=== PATIENT | male | born 1990 | race Caucasian/White ===

== ENCOUNTER 2022-08-16 17:34 | Emergency (ER) | payer BC, SELFPAY ==
[2022-08-16 17:46] VITALS: BP 154/105; PULSE 98; RESP 16; TEMP 36.7; O2SAT 99
--- NOTE | 2022-08-16 18:00 | PC.NURSE ---
PT UNABLE TO PROVIDE URINE SPECIMEN, WATER PROVIDED.
--- NOTE | 2022-08-16 18:29 | ED.FEMALEGU ---
HPI - Female Genitourinary General Chief complaint: Urogenital-Male Stated complaint: GROIN PAIN/BURNING URINATION/TIRED Related Data Home Medications Medication Instructions Recorded Confirmed multivitamin 1 tablet PO DAILY 07/24/19 08/16/22 Allergies Allergy/AdvReac Type Severity Reaction Status Date / Time Penicillins Allergy Unknown Skin Verified 08/16/22 17:54 Reaction PMFSH Past Medical History Medical History (Updated 08/16/22 @ 18:41 by Renate Pacheco NP) Kidney infection (~2014) [place] exposure (~2014) Family History Family History Sibling Depression Family history of attention deficit hyperactivity disorder (ADHD) Social History Social History Alcohol intake: current Course Vital Signs Vital signs: Vital Signs Oxygen Delivery Room Air 08/16/22 17:40 Temperature 36.7 C 08/16/22 17:46 Pulse Rate 98 08/16/22 17:46 Respiratory Rate 16 08/16/22 17:46 Blood Pressure 154/105 H 08/16/22 17:46 Pulse Oximetry 99 08/16/22 17:46 Oxygen Delivery Room Air 08/16/22 17:40 MDM - Female Genitourinary Lab Data Labs: Urine Glucose Negative Reference Range: Negative Urine Bilirubin Negative Reference Range: Negative Urine Ketone Negative Reference Range: Negative Urine Specific Robbins 1.030 Reference Range:1.001-1.035 Urine Blood Trace Reference Range: Negative * * Urine pH 5.5 Reference Range: 5.0-9.0 Urine Protein 2+ Reference Range: Negative Urine Urobilinogen 0.2 Reference Range: 0.2-1.0 Urine Nitrate Negative Reference Range: Negative Urine Leukocyte Negative Reference Range: Negative Urine Color Yellow Reference Range: Yellow Urine Characteristics Clear Urine Characteristics Cloudy Discharge Plan Discharge Clinical Impression: Epididymitis Patient Disposition: Home, Self-Care Condition: Stable Instructions: Antibiotic Form, Epididymitis (ED) Additional Instructions: Increase fluids especially cranberry juice and water Avoid caffeine and carbonated beverages Antibiotic as directed Flomax as prescribed daily Tylenol/ibuprofen for pain or fever Follow-up with her primary care provider if further problems or concerns Dr Collins urology on [phone] Recheck if you have fever over 101, nausea and vomiting. if pain increases to groin, any fevers, any testicle pain,blood in urine or changes in your condition go directly to the emergency room. If your symptoms persist, change or worsen significantly before you can contact your personal physician then please, without delay, go to the emergency department for further evaluation. Follow-up with PCP in 7-10 days or sooner if needed Follow up with PCP soon in regards to your blood pressure which is elevated above threshold for referral. Blood pressure above 120/80 may indicate pre-hypertension. 154/105 Prescriptions: New ciprofloxacin HCl 500 mg tablet 500 mg PO
--- NOTE | 2022-08-16 19:38 | ED.MALEGU ---
HPI - Male Genitourinary General Chief complaint: Urogenital-Male Stated complaint: GROIN PAIN/BURNING URINATION/TIRED Time Seen by Provider: 08/16/22 17:45 Source: patient, RN notes reviewed and old records reviewed Mode of arrival: ambulatory Limitations: no limitations History of Present Illness HPI Narrative: 31 year old male who presents to [facility] care with complaints of bilateral groin pain worse on left with some left back discomfort onset since last evening,with burning with urination some fatigue nausea and cloudy urine. Patient reports no fevers diarrhea or any hematuria or testicle pain. Patient reports that he does not have any diarrhea, hematuria, no penile discharge or any concerns for STD's. Patient reports that he has no history of kidney stones has had UTI's in past and also epididymitis. patient reports that he some constant pain which is worse with urination, has not taken any OTC medications for his discomfort. MD Complaint: dysuria and other (groin pain and left back pain) Onset (ago): day(s) (since yesterday evening) Severity scale (1-10): 5 Associated symptoms: Reports dysuria Related Data Home Medications Medication Instructions Recorded Confirmed multivitamin 1 tablet PO DAILY 07/24/19 08/16/22 Allergies Allergy/AdvReac Type Severity Reaction Status Date / Time Penicillins Allergy Unknown Skin Verified 08/16/22 17:54 Reaction Review of Systems Review of Systems: CONSTITUTIONAL: Denies fever, chills, or sweats. EYES: Denies visual changes, redness, or discharge. ENT: Denies rhinorrhea, congestion, sore throat, or otalgia. CARDIOVASCULAR: Denies chest pain, palpitations, or edema. RESPIRATORY: Denies cough or dyspnea. GASTROINTESTINAL: Reports left groin tenderness, and nausea no vomiting or diarrhea, no CVA tenderness, denies any penile drainage, admits to burning with urination. GENITOURINARY: positive dysuria no hematuria. SKIN: Denies rash or itching. MUSCULOSKELETAL: Reports lower left back pain, no joint pain, or myalgia. NEUROLOGIC: Denies headache, numbness, or weakness. PSYCHIATRIC: Denies anxiety or depression All systems reviewed & are unremarkable except as noted in HPI and below PMFSH Past Medical History Medical History (Updated 08/16/22 @ 18:41 by Renate Pacheco NP) Kidney infection (~2014) [place] exposure (~2014) Family History Family History Sibling Depression Family history of attention deficit hyperactivity disorder (ADHD) Social History Social History Alcohol intake: current Comments At time of signature, agree with nursing past medical, surgical, social and family history. There is no relevant family history pertinent to the presenting complaint Exam Narrative: GENERAL: Well-appearing, well-nourished, and in no acute distress. HEAD: Normocephalic, atraumatic. EYES: PERRLA and EOMI. ENT: Nares clear, no rhinorrhea or epistaxis. Mucous membranes moist. NECK: Supple. no lymphadenopathy CHEST: Clear to auscultation. No respiratory distress. HEART: Regular rate and rhythm. No murmur heard. Normal peripheral pulses. ABDOMEN: Soft, tenderness to left lower abdomen on palpation, no CVA tenderness, nondistended, normal active bowel sounds. No testicular swelling on examination or pain, reports some groin pressure. EXTREMITIES: Normal range of motion. No edema. SKIN: Warm, dry, no rash. NEURO: No focal deficits. Alert and oriented x3.anxious Course Course Emergency Course: Patient is aware of diagnosis, understands and agrees to treatment plan.? Anticipatory guidance given.? Patient agrees to follow-up as directed and is aware of reasons to seek care at the emergency department. Portions of this record may have been created with voice recognition software Level of Care: Express Care Visit Vital Signs Vital signs: Vital Signs Oxygen Delivery
== END 2022-08-16 18:50 | disposition home or self-care (01) ==
PROVIDERS: Emergency Provider Registered Nurse
DX: N45.1 Epididymitis (principal)
CPT/HCPCS: 81003; 99213; G0463

== ENCOUNTER 2023-12-11 09:21 | Outpatient (CLI) | payer BC, SELFPAY ==
--- NOTE | 2023-12-11 09:22 | EST_ITS ---
Patient Info Name: Je Silva Age: 33 years : 1990 Gender: Male Ht: 71 in Wt: 205 lbs BSA: 2.18 m2 Exam Date: 12/11/2023 10:02 AM Exam Location: [facility] Lab Patient Status: Outpatient Admit Date: 12/11/2023 Staff Ordering Physician: Doug Haynes DO Attending Provider: Doug Haynes DO Exercise Technologist: Leeann Mercedes RDCS Exercise Physician: Doug Haynes DO Exam Type: CA stress test treadmill Study Info Indications R07.9 - Chest pain, unspecified A treadmill exercise stress test was performed. Summary 1. 1. Negative Lamin exercise stress test for ischemic ST changes by ECG criteria. 2. 2. Good functional capacity, achieving 10 METs of workload. 3. 3. Appropriate HR response to exercise. 4. 4. Appropriate HR recovery at 1 minute post exercise. 5. 5. No imaging with stress testing. 6. 6. Patient informed of the above results. Protocol: [place]amin Stress ECG Details Stage: REST Duration (min): 1 min : 18 sec Speed (mph): 0.0 Grade (%): 0 HR (bpm): 67 SBP (mmHg): 143 DBP (mmHg): 79 METS: --- Stage: REST Duration (min): 5 min : 15 sec Speed (mph): 0.0 Grade (%): 0 HR (bpm): 98 SBP (mmHg): 143 DBP (mmHg): 79 METS: --- Stage: STAGE 1 Duration (min): 1 min : 0 sec Speed (mph): 1.7 Grade (%): 10 HR (bpm): 112 SBP (mmHg): 143 DBP (mmHg): 79 METS: --- Stage: STAGE 1 Duration (min): 2 min : 0 sec Speed (mph): 1.7 Grade (%): 10 HR (bpm): 120 SBP (mmHg): 143 DBP (mmHg): 79 METS: --- Stage: STAGE 1 Duration (min): 3 min : 0 sec Speed (mph): 1.7 Grade (%): 10 HR (bpm): 120 SBP (mmHg): 187 DBP (mmHg): 78 METS: --- Stage: STAGE 2 Duration (min): 1 min : 0 sec Speed (mph): 2.5 Grade (%): 12 HR (bpm): 132 SBP (mmHg): 187 DBP (mmHg): 78 METS: --- Stage: STAGE 2 Duration (min): 2 min : 0 sec Speed (mph): 2.5 Grade (%): 12 HR (bpm): 142 SBP (mmHg): 188 DBP (mmHg): 89 METS: --- Stage: STAGE 2 Duration (min): 3 min : 0 sec Speed (mph): 2.5 Grade (%): 12 HR (bpm): 145 SBP (mmHg): 188 DBP (mmHg): 89 METS: --- Stage: STAGE 3 Duration (min): 1 min : 0 sec Speed (mph): 3.4 Grade (%): 14 HR (bpm): 160 SBP (mmHg): 200 DBP (mmHg): 81 METS: --- Stage: STAGE 3 Duration (min): 2 min : 0 sec Speed (mph): 3.4 Grade (%): 14 HR (bpm): 172 SBP (mmHg): 200 DBP (mmHg): 81 METS: --- Stage: STAGE 3 Duration (min): 2 min : 41 sec Speed (mph): 3.4 Grade (%): 14 HR (bpm): 174 SBP (mmHg): 212 DBP (mmHg): 81 METS: --- Stage: RECOVERY Duration (min): 0 min : 18 sec Speed (mph): 1.5 Grade (%): 0 HR (bpm): 169 SBP (mmHg): 212 DBP (mmHg): 81 METS: --- Stage: RECOVERY Duration (min): 1 min : 18 sec Speed (mph): 0.0 Grade (%): 0 HR (bpm): 133 SBP (mmHg): 213 DBP (mmHg): 70 METS: --- Stage: RECOVERY Duration (m
== END 2023-12-11 09:22 | disposition home or self-care (01) ==
PROVIDERS: PCP Nurse Practitioner Family; Visit Provider Internal Medicine Cardiovascular Disease
DX: R07.9 Chest pain, unspecified (principal)
CPT/HCPCS: 93017